=== PATIENT | female | born 1965 | race Two or more races ===

== ENCOUNTER 2018-09-08 21:27 | Emergency (ER) | payer SELFPAY ==
[~2018-09-08] VITALS: Ht 157.5 cm; Wt 74.4 kg
[~2018-09-08 21:27] MED LIST: constipation med
[2018-09-08] MEDS ORDERED: SODIUM CHLORIDE FLUSH 10ML SYR IVF ONE (22:00)
[2018-09-08] MEDS ORDERED: MORPHINE SULFATE 4 MG/ML, 1ML ONE ×2 (22:04→23:16)
[2018-09-08 22:11] LABS: CULTURE INDICATED? YES; HCG UR SG 1.016 (1.003-1.030); MICROSCOPIC AUTO
[2018-09-08] MEDS: MORPHINE SULFATE 4 MG/ML, 1ML IVPush PRN ×2 (22:19→23:20)
[2018-09-08 22:20] LABS: BASOPHILS # (AUTO) 0.06 x10^3/uL (0-0.1); BASOPHILS % (AUTO) 1 % (0-1); EOSINOPHILS # (AUTO) 0.19 x10^3/uL (0-0.4); EOSINOPHILS % (AUTO) 2 % (1-7); LYMPHOCYTES # (AUTO) 3.91 x10^3/uL (1-3.4); LYMPHOCYTES % (AUTO) 32 % (22-44); MD NO; MEAN CORPUSCULAR HEMOGLOBIN 33.6 pg (27.0-34.8); MEAN CORPUSCULAR HGB CONC 34.4 g/dL (32.4-35.8); MEAN CORPUSCULAR VOLUME 97.5 fL (80-100); MEAN PLATELET VOLUME 7.4 fL (7.4-10.4); MONOCYTES # (AUTO) 0.83 x10^3/uL (0.2-0.8); MONOCYTES % (AUTO) 7 % (2-9); NEUTROPHILS # (AUTO) 7.06 x10^3/uL (1.8-6.8); NEUTROPHILS % (AUTO) 59 % (42-75); PLATELET COUNT 336 x10^3/uL (130-400); RED BLOOD COUNT 4.08 x10^6/uL (3.82-5.3); RED CELL DISTRIBUTION WIDTH 12.8 % (9.6-15.2)
[2018-09-08 22:29] LABS: ALANINE AMINOTRANSFERASE 45 U/L (12-78); ALBUMIN 3.7 g/dL (3.4-5.0); ANION GAP 11 mmol/L (5-15); CALCIUM 8.4 mg/dL (8.5-10.1); CHLORIDE 105 mmol/L (98-107); CREATININE 0.62 mg/dL (0.55-1.02)
[2018-09-08 22:31] LABS: ALKALINE PHOSPHATASE 101 U/L (45-117); BILIRUBIN,TOTAL 0.4 mg/dL (0.2-1.0); TOTAL PROTEIN 7.6 g/dL (6.4-8.2); TROPONIN I < 0.015 ng/mL (0.000-0.045)
[2018-09-08] MEDS ORDERED: OMNIPAQUE 350 MG/ML, 100ML BOTTLE ONE (22:57)
[2018-09-08] MEDS ORDERED: METHYLNALTREXONE 12 MG/0.6 ML SQ ONE ×2 (23:11→23:30)
[2018-09-09 00:28] VITALS: BP 148/79
== END 2018-09-09 00:30 | disposition home or self-care (01) ==
LOC: ED 09-09 00:24
DX: R10.13 Epigastric pain (principal)
CPT/HCPCS: 36415; 74175; 80053; 81001; 81025; 83690; 84484; 85025; 87086; 93005; 96372; 96374; 96376; 99285; Q9967